=== PATIENT | male | born 1945 | race Two or more races ===

== ENCOUNTER 2025-06-29 07:41 | Outpatient (OUT) | payer MEDICARE, OTHER, SELFPAY ==
--- OUTSIDE RECORDS SUMMARY | 2025-01-09 07:30 | XMS_ITS ---
Author Organization The [facility] in [place] Address [address] [place] [address] Care Team Providers Care Customer Service Receptionist Name Role Phone Flor Doll Primary Care Provider REASON FOR VISIT BP CHECK Vital Signs Blood pressure systolic 134 mm Hg 01/09/20 25 Blood pressure diastolic 78 mm Hg 025 Height 72 in 01/09/2025 Encounters Encounter Location Date Provider Diagnosis [facility] [address] [place] [address] 01/09/2025 Flor Doll Hypertension 401.9 Assessments Encounter Date Diagnosis (ICD Code) Assessment Notes Treatment Notes Treatment Clinical Notes Section Notes 01/09/2025 Hypertension (ICD9-CM - 401.9) Plan Of Treatment No Information Progress Notes * Ovidio RMkaveh ADOB: [birth year] (79 yo M)Acc No.[id number]:01/09/2025 BP Check Patient: Breanna CRABTREE Provider: Ankur Doll ([facility]), ORACLE ANALYST :1945 A ge:79 Y S ex:Male Date:01/09/2025 Address:[address] [place], [place] [id number] Check In:11:25 AM ESTCheck O ut:11:28 AM EST Subjective: * Chief Complaints: * 1 . BP CHECK. * Active Problem List M19.90 Arthritis Modified On:03/11/2024W/U Status:confirmed K57.30 Colon, diverticulosi s Modified On:03/11/2024U Status:confirmed R97.20 Elevated prostate sp ecific antigen [PSA] Modified On:03/11/2024/U Status:confirmed E78.5 Hyperlipemia Modified On:01/27/2023U Status:confirmed * Medical History: Objective: * Vitals: H t: 72 in, BP:134/78mm Hg, Ht-cm: 182.88 cm. Assessment: * Assessment: 1. H ypertension - 401.9 (Primary) Plan: * Treatment: * * Sign off status: Completed Visit Status: Andi CLEARY (Check Out) true * Provider: Ankur Doll ([facility]), ORACLE ANALYST Date: 01/09/2025 Generated for Ilda mullins/Corina/Renatoitting on: 06/29/2025 07:48 AM EDT
--- OUTSIDE RECORDS SUMMARY | 2025-06-25 05:30 | XMS_ITS ---
Author Organization The [facility] in [place] Address [address] [place] [address] Care Team Providers Care Sandstone Inspector Repairer Name Role Phone Flor Doll Primary Care Provider [phone] Mason Solis [phone] Allergies No Known Allergies REASON FOR VISIT Medicare Wellness Medications Medication SIG (Take, Route, Frequency, Duration) Notes Start Date End Date Status Dorzolamide HCl-Timolol Mal 2-0.5 % 1 drop into affected eye Ophthalmic Twice a day Active Latanoprost 0.005 % 1 drop into affected eye in the evening Ophthalmic Once a day Active Social History Tobacco Use: Social History Observation Description Date Details (start date - stop date) Former Smoker NA - 12/12/1969 Tobacco Control (Standard) Question Answer Notes Tobacco use: Former smoker When did you stop smoking? 12/12/1969 How long has it been since you last smoked? Paulaa ter than 10 years AUDIT-C (Standard) Question Answer Notes Did you have a drink contain ing alcohol in the past year? Yes How often did you have six o r more drinks on one occasion in the past year? 4 or more times a week (4 points) How many drinks did you have on a typical day when you were drinking in the past year? 5 or 6 drinks (2 points) How often did you have a dri nk containing alcohol in the past year? Monthly or less (1 point) Points 7 Interpretation Positive Vital Signs Blood pressure systolic 132 mm Hg 06/25/20 25 Blood pressure diastolic 82 mm Hg 025 Height 72 in 06/25/2025 Weight 173.2 lbs 06/25/2025 BMI 23.49 kg/m2 06/25/2025 Encounters Encounter Location Date Provider Diagnosis [facility] ([place], [place]) [address] [facility] [place] [address] 06/25/2025 Mason Marcusdemian Encounter for Medica annual wellness exam Z00.00 Assessments Encounter Date Diagnosis (ICD Code) Assessment Notes Treatment Notes Treatment Clinical Notes Section Notes 06/25/2025 Encounter for Medicare annual wellness exam (ICD-10 - Z00.00) Plan Of Treatment No Information Progress Notes * Breanna RM ADOB: [birth year] (80 yo M)Acc No.[id number]:06/25/2025 UNLOCKED PROGRESS NOTE Progress Note Patient: Breanna CRABTREE Provider: Royer Solis ([facility])MD :1945 A ge:80 Y S ex:Male Date:06/25/2025 Address:[address] [place] [id number] Pcp:Flor Doll Check In:09:09 AM ESTCheck O ut:10:19 AM EST Subjective: * Chief Complaints: * 1 . Medicare Wellness. * HPI: Koby shell Annual Wellness Visit: Type of Visit: [facility] Annual Wellness Visit (SAWV).? Visual Acuity: N /A. Other Providers of Care: C are Team reviewed with patient: Demian cohen, and updates made in [place] of Care Physical Activity: D o you exercise regularly? Y es T ype of exercise: _ __ F requency: _ __ Nutrition/Diet: O n a typical day, how many servings of fruits and vegetables do you consume? 4 I n a typical week, how many servings of fried or high fat (such as cheese, fatty meat) do you consume? 4 I n a typical week, how many servings of high fiber or whole grain foods do you consume? 4 Seat Belt: D o you always use your seat belt in your car??Yes A re you having difficulties driving your car??No C an you get to places out of walking distance without help? Y es Dental: H ow would you describe the condition of your mouth and teeth, including any false teeth or dentures? E xcellent Medication List Follow-Up: D uring the past four weeks, how much bodily pain do you have? N o pain D o you have a current opioid prescription??No Self Assessment of Health: H ow would you rate your overall health the past four weeks? E xcellent H ow confident are you that you can control and manage most of your health problems? V mario alberto confident H ow have things been going for you during the past four weeks? V mario alberto well; could hardly be better D uring the past four weeks, was someone available to help you if you needed and wanted help? Y es, as much as I wanted (Example: if you felt nervous, lonely, or blue; got sick and had to stay in bed; needed someone to talk to; help with daily chores; or needed help just taking care of yourself) D o you have any sexual problems? N o D o you have any troubles eating well? N o D o you have any problems with tiredness or fatigue? N o H ave you noticed any hearing difficulties??No Sun Exposure: D o you protect yourself from over exposure to the sun when outdoors? Y es Mental Wellness: D uring the past four weeks, how much have you been bothered by emotional problems such as feeling anxious, depressed, irritable, sad, or downhearted and blue? N ot at all D uring the past four weeks, has your physical and emotional health limited your social activities with family, friends, neighbors, or groups??Not at all Functional Ability and Safety Screening: D o you need assistance with any of the following? Select all that apply. N one D oes your home have rugs in the hallway, lack grab bars in the bathroom, lack handrails on the stairs or have poor lighting? N o D o you feel unsteady and/or dizzy when standing or walking? N o D o you have smoke detectors in your home and routinely change the batteries? Y es D o you have a fire extinguisher and know how to use it properly? Y es D o you have any problems with your living situation, food, transportation, utilities, or safety? N o Cognitive Screening: H ave you experienced any memory issues or problems with thinking? N o H ave your family members, friends, caretakers, or others raised any concerns? N o D o you get confused or easily distracted more than you used to? N o H as your ability to concentrate seem to have declined recently? N o O verall Cognitive Status I ntact End of Life Planning: D o you have a living will? Y es D o you have a Durable Power of [employer] Cle[employer] Supervisor? Y es W ould you like to discuss this topic today??No SDOH A gree to complete Social Determinants of Health questionnaire Y es W ithin the past 12 months, did you worry that your food would run out before you got money to buy more? N o W ithin the past 12 months, did the food you bought just not last and you didn't have money to buy more? N o W ithin the past 12 months, have you ever stayed: outside, in a car, in a a tent, in an overnight detention, or temporarily in someone else's home??No A re you worried about losing your housing??No W ithin the past 12 months, have you been able to get utilities (heat, electricity) when it was really needed? N o W ithin the past 12 months, has a lack of transportation kept you from medical appointments or from doing things needed for daily living? N o D o you feel physically or emotionally unsafe where you currently live? N o W ould you like help with any of these needs that you have identified? N o DO NOT USE - Vision Screening Y es, no gross abnormalities, under the care of an eye doctor . DO NOT USE - Vision Screening Questionnaire H ave you had an appointment with your Eye Doctor in the past year? Y es DO NOT USE - Hearing Screening Y es, no gross abnormalities. DO NOT USE - ETOH Use: N ever. DO NOT USE - Psychosocial Risks H ave you been experiencing more stress or anxiety than usual? N o A re you experiencing any stress or anxiety about your disease management? N o DO NOT USE - Behavioral Risks - P atient seems well adjusted and no behavioral issues noted DO NOT USE - Personal Care Activities H ow difficult is it for you to bathe or clean yourself? N ot difficult H ow difficult is it for you to dress yourself? N ot difficult DO NOT USE - Household Activities H ow difficult is it for you to do routine housework? N ot difficult H ow much does your family help with daily or routine chores? N ot at all DO NOT USE - Daily Activities H ow difficult is it for you to do your own shopping? N ot difficult H ow difficult is it for you to prepare your own food? N ot difficult DO NOT USE - Financial Activities D escribe your ability to plan your daily/monthly budgets and pay your bills: Madelaine Howell DO NOT USE - Pain Assessment D o you experience pain? N o DO NOT USE - Get Up and Go Evaluation U nder 20 seconds.? DO NOT USE - Discussed Advance Directives P atient refused to discuss at this time. DO NOT USE - Activities of Daily Living/Home Safety H ow difficult is it for you to get around your house? N ot difficult H ow difficult is it for you to use the toilet by yourself? N ot difficult H ow difficult is it for you to bathe or clean yourself? N ot difficult H ow difficult is it for you to dress yourself? N ot difficult H ow difficult is it for you to do routine housework? N ot difficult H ow much does your family help with daily or routine chores? N ot at all H ow difficult is for you to do your own shopping? N ot difficult H ow difficult is it for you to prepare your own food? N ot difficult D escribe your ability to plan your daily/monthly budgets and pay your bills: Madelaine Howell A re you currently licensed to drive a vehicle? Y es D o you feel that you are safe in your current home? Y es Patient presents to office alone today via self to transport. Patient stated that he is under the care of and eye doctor and dentist. Patient pleasant and happy with his overall care. Patient is very active and enjoys gardening in his garden. Patient denies wanting to discuss end of life details. Patient is ok with yearly labs and would like them sent to [facility]. D epression Screening: PHQ-2 (2015 Edition) L ittle interest or pleasure in doing things??Not at all F eeling down, depressed, or hopeless? N ot at all T otal Score 0 * Medical History: H yperlipemia, Elevated prostate specific antigen [PSA], Arthritis, Colon, diverticulosis, Abnormal findings in stool, Skin cancer of face. * Surgical History: A ppendectomy , Glaucoma and Cataract Extractions- both eyes . * Hospitalization/Major Diagno stic Procedure: D enies Past Hospitalization. * Family History: F ather: , chronic obstructive pulmonary disease. M other: . B glenner(s): alive, prostate cancer, diagnosed with Prostate cancer. S iscarolyn(s): alive, leukemia. S on(s): alive, type II diabetes, diagnosed with Diabetes mellitus without mention of complication, type II or unspecified type, not stated as uncontrolled. D quincyer(s): alive. 3 brother(s) , 3 sister(s) . 1 son(s) , 1 daughter(s) . . * Social History: T obacco Use: T obacco Control (Standard) T obacco use: F ormer smoker W hen did you stop smoking? 0 12/12/1969 H ow long has it been since you last smoked??Greater than 10 years D rug/Alcohol: A JESSICA-C (Standard) D id you have a drink containing alcohol in the past year? Y es H ow often did you have six or more drinks on one occasion in the past year? 4 or more times a week (4 points) H ow many drinks did you have on a typical day when you were drinking in the past year? 5 or 6 drinks (2 points) H ow often did you have a drink containing alcohol in the past year? M onthly or less (1 point) P oints 7 I nterpretation P ositive * Medications: T aking Dorzolamide HCl-Timolol Mal 2-0.5 % Solution 1 drop into affected eye Ophthalmic Twice a day , Taking Latanoprost 0.005 % Solution 1 drop into affected eye in the evening Ophthalmic Once a day , Discontinued Tamiflu(Oseltamivir Phosphate) 75 MG Capsule 1 capsule Orally Twice a day , Medication List reviewed and reconciled with the patient * Allergies: N .K.D.A. Objective: * Vitals: W t:173.2lbs, Ht: 72 in, BP:132/82mm Hg, BMI:23.49Index, Ht-cm: 182.88 cm, Wt-k.56 kg. Assessment: * Assessment: 1. E [facility] for Medicare annual wellness exam - Z00.00 (Primary) Plan: * Treatment: * Procedure Codes: G 0439 ANNUAL WELLNESS, SUBSEQ * Preventive Medicine: Screenings/Counseling: F ALL RISK SCREENING Fall Risk Assessment: N o falls in the past year Are you afraid of falling? N o * * Electronic signature of Mason Solis MD, [phone] on 06/29/2025 at 07:48 AM EDT Sign off status: Pending Visit Status: C HK (Check Out) * Provider: Royer Solis ([facility])MD Date: 0 06/25/2025 Generated for Graemei susanna/Corina/eTransmitting on: 0 06/29/2025 07:48 AM EDT History and Physical Notes * HPI (History of Present Illness) Category Sub-Category Detail Notes Category Not es Medicare Annual Wellness Visit Type of Visit: Subsequent Annual Wellness V isit (SAWV) Patient presents to office alone today via self to transport. Patient stated that he is under the care of and eye doctor and dentist. Patient pleasant and happy with his overall care. Patient is very active and enjoys gardening in his garden. Patient denies wanting to discuss end of life details. Patient is ok with yearly labs and would like them sent to [facility]. DO NOT USE - Pain Assessment Do you experience p ain?: No DO NOT USE - Vision Screening Yes, no gr oss abnormalities, under the care of an eye doctor DO NOT USE - Hearing Screening Yes, no g ross abnormalities DO NOT USE - Psychosocial Risks Have you been experiencing more stress or anxiety than usual?: No Are you experiencing any stress or anxie ty about your disease management?: No DO NOT USE - Behavioral Risks -: Patient seems well adjusted and no behavioral issues noted Cognitive Screening: Have you experience d any memory issues or problems with thinking?: No Have your family members, fr iends, caretakers, or others raised any concerns?: No Do you get confused or easily distracted more than you used to?: No Has your ability to concentrate seem to have declined recently?: No Overall Cognitive Status: Intact Self Assessment of Health: How would you rate your overall health the past four weeks?: Excellent How confident are you that y ou can control and manage most of your health problems?: Very confident How have things been going f or you during the past four weeks?: Very well; could hardly be better During the past four weeks, was someone available to help you if you needed and wanted help?: Yes, as much as I wanted (Example: if you felt nervous, lonely, o r blue; got sick and had to stay in bed; needed someone to talk to; help with daily chores; or needed help just taking care of yourself) Do you have any sexual problems?: No Do you have any troubles eating well?: N o Do you have any problems wit h tiredness or fatigue?: No Have you noticed any hearing difficulties?: No DO NOT USE - Activities of D aily Living/Home Safety How difficult is it for you to get around your house?: Not difficult How difficult is it for you to use the t oilet by yourself?: Not difficult How difficult is it for you to bathe or clean yourself?: Not difficult How difficult is it for you to dress you rself?: Not difficult How difficult is it for you to do routin e housework?: Not difficult How much does your family help with jessica y or routine chores?: Not at all How difficult is for you to do your own shopping?: Not difficult How difficult is it for you to prepare y our own food?: Not difficult Describe your ability to rachna n your daily/monthly budgets and pay your bills:: Very Good Are you currently licensed to drive a [employer]?: Yes Do you feel that you are safe in your cu rrent home?: Yes DO NOT USE - Get Up and Go Evaluation Un elana 20 seconds DO NOT USE - Discussed Advance Directive s Patient refused to discuss at this time Physical Activity: Do you exercise regularly?: Y es Type of exercise:: ___ Frequency:: ___ DO NOT USE - Personal Care Activities Ho w difficult is it for you to bathe or clean yourself?: Not difficult How difficult is it for you to dress you rself?: Not difficult DO NOT USE - Household Activities How di fficult is it for you to do routine housework?: Not difficult How much does your family help with jessica y or routine chores?: Not at all DO NOT USE - Daily Activities How diffic ult is it for you to do your own shopping?: Not difficult How difficult is it for you to prepare y our own food?: Not difficult DO NOT USE - Financial Activities Descri be your ability to plan your daily/monthly budgets and pay your bills:: Very Good Functional Ability and Safety Screening: Do you need assistance with any of the following? Select all that apply.: None Does your home have rugs in the hallway, lack grab bars in the bathroom, lack handrails on the stairs or have poor lighting?: No Do you feel unsteady and/or dizzy when s tanding or walking?: No Do you have smoke detectors in your home and routinely change the batteries?: Yes Do you have a fire extinguisher and know how to use it properly?: Yes Do you have any problems wit h your living situation, food, transportation, utilities, or safety?: No DO NOT USE - Vision Screening Questionna vijaya Have you had an appointment with your Eye Doctor in the past year? : Yes Visual Acuity: N/A DO NOT USE - ETOH Use: Never Nutrition/Diet: On a typical day, ho w many servings of fruits and vegetables do you consume?: 4 In a typical week, how many servings of fried or high fat (such as cheese, fatty meat) do you consume?: 4 In a typical week, how many servings of high fiber or whole grain foods do you consume?: 4 Seat Belt: Do you always use your seat belt in your car?: Yes Are you having difficulties driving your car?: No Can you get to places out of walking dis tance without help?: Yes Dental: How would you descri be the condition of your mouth and teeth, including any false teeth or dentures?: Excellent Medication List Follow-Up: During the four weeks, how much bodily pain do you have?: No pain Do you have a current opioid prescriptio n?: No Mental Wellness: During the past four weeks, how much have you been bothered by emotional problems such as feeling anxious, depressed, irritable, sad, or downhearted and blue?: Not at all During the past four weeks, has your physical and emotional health limited your social activities with family, friends, neighbors, or groups?: Not at all Sun Exposure: Do you protect yours elf from over exposure to the sun when outdoors?: Yes End of Life Planning: Do you have a living will? : Yes Do you have a Durable Power of [employer] Cle[employer] Supervisor? : Yes Would you like to discuss this topic tod ay?: No Other Providers of Care: Care Team camryn lugo with patient:: Yes, and updates made in [place] [facility] SDMN Agree to complete So cia Determinants of Health questionnaire: Yes Within the past 12 months, did you worry that your food would run out before you got money to buy more?: No Within the past 12 months, did the food you bought just not last and you didn't have money to buy more?: No Within the past 12 months, have you ever stayed: outside, in a car, in a a tent, in an overnight detention, or temporarily in someone else's home?: No Are you worried about losing your housing?: No Within the past 12 months, have you been able to get utilities (heat, electricity) when it was really needed?: No Within the past 12 months, has a lack of transportation kept you from medical appointments or from doing things needed for daily living?: No Do you feel physically or emotionally unsafe where you currently live?: No Would you like help with any of these needs that you have identified?: No Depression Screening PHQ-2 (2015 Edition) Little interest or pleasure in doing things?: Not at all Feeling down, depressed, or hopeless?: N ot at all Total Score: 0
--- OUTSIDE RECORDS SUMMARY | 2025-06-29 07:48 | XMS_ITS | Clinical Summary ---
Author Organization [facility] Healthcare Address [address] [place] [address] Care Team Providers Care Tire Inspector Name Role Phone Flor Doll MD Unavailable [phone] Allergies No known active allergies Medications Prednisolon-Mox iflox-Bromfenac 1-0.5-0.075 % solutionIndicat ions:Cortical age-related cataract of both eyes Administer 1 drop into affected eye(s) in the morning and 1 drop at noon and 1 drop in the evening and 1 drop before bedtime. 10 mL 1 4 Active latanoprost (Xalatan) 0.005 % ophthalmic solutionIndicat ions:Primary open angle glaucoma (POAG) of both eyes, moderate stage instill 1 (ONE) DROP IN BOTH EYES AT BEDTIME 7.5 mL 3 4 Active dorzolamide-leona olol (Cosopt) 2-0.5 % ophthalmic solutionIndicat ions:Primary open angle glaucoma (POAG) of both eyes, moderate stage instill 1 DROP IN BOTH EYES TWICE DAILY 10 mL 3 5 Active Active Problems Problem Noted Date Diagnosed Date Primary open angle glaucoma (POAG) of both eyes, moderate stage 05/07/2023 Age-related nuclear cataract of both eyes 2022 Dry eyes 05/07/2023 Encounters Date Type Department Care Team Description 03/31/2025 8:30 AM EDT Office Visit [facility] [address] [place] [phone] Trish Rivera MD Primary open angle glaucoma (POAG) of both eyes, moderate stage (Primary Dx) 03/31/2025 Bamboo flowsheet [facility] [address] [place] [phone] Trish Rivera MD 03/31/2025 Travel from Last 3 Months Social History Tobacco Use Types Packs/Day Years Used Date Smoking Tobacco: Former Cigarettes Tobacco Cessation:Counseling Given: Not Answered Sex and Gender Information Value Date Recorded Sex Assigned at Not on file Legal Sex Male 8:32 PM EDT Gender Identity Not on file Sexual Orientation Not on file Plan of Treatment Upcoming Encounters Date Type Department Care Team (Late st Contact Info) Description 08/03/2025 9:15 AM EDT Office Visit [facility] [address] [place] [address] Trish Rivera MD [address] [place], [place] [id number] Health Maintenance Due Date Last Done Comments Pneumococcal Vaccine: 65+ Ye ars (1 of 1 - PCV) 1996 Influenza Vaccine (#1) 2025 4, 08/20/2023, 08/21/2022, Additional history exists Procedures Procedure Name Priority Date/Time Associated Diagnosis Comments TAPIA VISUAL FIELD - OU - BOTH EYES Routine 03/31/2025 9:07 AM EDT Primary open angle glaucoma (POAG) of both eyes, moderate stage from Last 3 Months Results * Tapia Visual Field - OU - Both Eyes (03/31/2025 9:07 AM EDT) Anatomical Region Laterality Modality Head Visual Field Narrative 03/31/2025 9:07 AM EDT Right Eye Reliability was good. Progression has no prior data. Foveal threshold was reduced. Findings include superior nasal step defect, inferior nasal step defect, superior altitudinal defect, inferior altitudinal defect, superior paracentral defect, inferior paracentral defect, paracentral scotoma. Left Eye Findings include inferior arcuate defect, inferior nasal step defect, inferior altitudinal defect. Trish Rivera MD OPH VISUAL FIELD Final Result from Last 3 Months Insurance MEDICARE [facility] [place] [phone] Care Teams Tire Inspector Relationship Specialty Start Date End Date Flor Doll MD [address] [place] [id number] Referring Physician Family Medicine 12/27/23
--- OUTSIDE RECORDS SUMMARY | 2025-06-29 07:49 | XMS_ITS | Patient Health Record ---
Author Organization [facility] [place] Address [address] [place] [address] Care Team Providers Care Reed Polisher Name Role Phone Flor Doll Primary Care Provider Mason Solis Marco [phone] Allergies No Known Allergies Results Component Value Reference Range Notes COVID-19, Flu A+B IH (Not ye t reviewed by provider) Interpretation: Performing Lab: Notes/Report: COVID neg FLU A positive FLU B neg Control present Reason For Referral No Information Medications Medication SIG (Take, Route, Frequency, Duration) Notes Start Date End Date Status Dorzolamide HCl-Timolol Mal 2-0.5 % 1 drop into affected eye Ophthalmic Twice a day Active Latanoprost 0.005 % 1 drop into affected eye in the evening Ophthalmic Once a day Active Immunizations Vaccine Route Administration Date Status Comme nts Flu, Fluad (50270) 65 yrs + High Dose Seasonal () Unknown 08/22/2016 Administered Flu, Fluad (50789) 65 yrs + High Dose Seasonal () Unknown 08/10/2017 Administered Flu, Fluad (60876) 65 yrs + High Dose Seasonal () Unknown 09/09/2018 Administered Flu, Fluad (32798) 65 yrs + High Dose Seasonal () Unknown 09/08/2019 Administered Flu, Fluad (80430) 65 yrs + High Dose Seasonal () Unknown 08/18/2024 Administered Flu, Fluad (52982) 65 yrs+, single-dose syringe () Unknown 08/20/2023 Administered Flu, Fluzone (97576) 6 mos+, single-dose syringe/vial (7812-0346) Unknown 09/08/2015 Administered Flu, Fluzone High-Dose (2022 -2023) (42906) 65 yrs+ Unknown 08/02/2020 Administered Flu, Fluzone High-Dose (2022 -2023) (87563) 65 yrs+ Unknown 08/10/2021 Administered Flu, Fluzone High-Dose (2022 -2023) (30022) 65 yrs+ Unknown 08/21/2022 Administered SARS-COV-2 (COVID 19 Moderna - Booster 0.25mL) Unknown 12/24/2020 Administered SARS-COV-2 (COVID 19 Moderna - Booster 0.25mL) Unknown 01/20/2021 Administered Social History Tobacco Use: Social History Observation Description Date Details (start date - stop date) Former Smoker NA - 12/12/1969 Tobacco Control (Standard) Question Answer Notes Tobacco use: Former smoker When did you stop smoking? 12/12/1969 How long has it been since you last smoked? Grea ter than 10 years AUDIT-C (Standard) Question [...] less (1 point) Points 7 Interpretation Positive Problems Problem Type SNOMED Code ICD Code Onset Dates Problem Status W/U Status Risk Notes Problem Hyperlipidaemia (80480129) Hyperlipemia (E78.5) Active confirmed Problem Hypertension (22433175) Hypertension (I10) Active confirmed Problem Arthritis (1091568) Arthritis (M19.90) Active confirmed Problem Diverticular disease of colon (870074677) Colon, diverticulosis (K57.30) Active confirmed Problem Elevated PSA (213577470) Elevated prostate specific antigen [PSA] (R97.20) Active confirmed Vital Signs Temperature 101.3 degrees Fahrenheit 01/02/2025 Blood pressure diastolic 82 mm Hg 06/25/2025 Height 72 in 06/25/2025 Blood pressure systolic 132 mm Hg 06/25/2025 Weight 173.2 lbs 06/25/2025 BMI 23.49 kg/m2 06/25/2025 Encounters Encounter Location Date Provider Diagnosis [facility] [address] [place] [address] 01/08/2025 Flor Doll [facility] [address] [place] [address] 01/09/2025 Flor Doll [facility] [address] [place] [address] 06/25/2025 Flor Doll Hypertension [address] [place] [address] 01/02/2025 Flor Doll Body aches R52 ; Influenza A J10.1 and Fever R50.9 [facility] [address] [place] [address] 01/09/2025 Flor Doll Hypertension 401.9 [facility] [address] [place] [address] 06/25/2025 Mason Solis Encounter for [facility] annual wellness exam Z00.00 Assessments Encounter Date Diagnosis (ICD Code) Assessment Notes Treatment Notes Treatment Clinical Notes Section Notes 01/02/2025 Body aches (ICD-10 - R52) 01/02/2025 Influenza A (ICD-10 - J10.1) fu if not improving if eye doesnt continue improve, notify office 01/09/2025 Hypertension (ICD9-CM - 401.9) 06/25/2025 Encounter for Medicare annual wellness exam (ICD-10 - Z00.00) 06/25/2025 Hypertension (ICD-10 - I10) 01/02/2025 Fever (ICD-10 - R50.9) Plan Of Treatment Pending Test Test Name Order Date HEMOGLOBIN A1C (GLYCO) 06/25/2025 INSULIN, TOTAL 06/25/2025 LIPID PANEL (CHOL/TRIG/HDL/LDL) 06/25/20 25 URIC ACID 06/25/2025 COVID-19, Flu A+B IH 01/02/2025 THYROID PANEL (T4/TSH/FREE T3) PSA, SCREENING 06/25/2025 CMP (COMP MET SERNA) w/eGFR CKD-EPI 2024 CBC WITH DIFF 06/25/2025 Insurance Providers Payer Name Payer Address Payer Phone Subscriber Number Group Number Insured Name Patient Relationship to Insured Coverage Start Date Coverage End Date [place]IC[place] [address] [place] [address] [id number] Breanna Wong Self - patient is the insured [employer] [id number] [place] [address] [id number] Plan F Breanna Wong Self - patient is the insured Medical (General) History Medical History History ICD Code Hyperlipemia E78.5 Elevated prostate specific antigen [PSA] R97.20 Arthritis M19.90 Colon, diverticulosis K57.30 Abnormal findings in stool R19.5 Skin cancer of face C44.310 Surgical History Surgery Date(Month/Year) Appendectomy Glaucoma and Cataract Extractions- both eyes
[2025-06-29 08:42] LABS: Hematocrit 44.3 % (42.0-54.0); Hemoglobin 15.0 g/dL (14.0-18.0); Immature Granulocytes Abs Auto 0.01 10^3/uL (0.00-0.03); Immature Granulocytes Pct Auto 0.2 % (0.0-0.5); Lymphocytes Absolute Auto 1.7 10^3/uL (1.2-3.8); Mean Corpuscular HGB Conc 33.9 g/dL (29.9-35.2); Mean Corpuscular Hemoglobin 31.6 pg (25.9-34.0); Mean Corpuscular Volume 93.5 fL (80.0-94.0); Platelet Count 199 10^3/uL (150-450); Red Blood Count 4.74 10^6/uL (4.70-6.10); White Blood Count 4.7 10^3/uL (4.0-11.0)
[2025-06-29 09:48] LABS: Alanine Aminotransferase 20 U/L (16-63); Albumin Globulin Ratio 0.8; Albumin Level 3.4 g/dL (3.4-5.0); Alkaline Phosphatase 63 U/L (46-116); Anion Gap 10.0; Aspartate Amino Transferase 17 U/L (15-37); Blood Urea Nitrogen 15.0 mg/dL (7.0-18.0); Calcium 9.0 mg/dL (8.5-10.1); Carbon Dioxide 28.4 mmol/L (21.0-32.0); Chloride 103 mmol/L (98-107); Cholesterol 202 mg/dL (<=200); Estimated GFR (African America >60 (>=60 mL/min/1.73m^2); Estimated GFR (Non-African Ame >60 (>=60 mL/min/1.73m^2); Free T3 2.36 pg/mL (2.18-3.98); Globulin 4.3 g/dL; Glucose 96 mg/dL (74-106); HDL Cholesterol 62 mg/dL (40-60); Potassium 4.4 mmol/L (3.5-5.1); Sodium 137 mmol/L (136-145); Thyroid Stimulating Hormone 2.240 uIU/mL (0.358-3.740); Total Protein 7.7 g/dL (6.4-8.2); Triglycerides 64 mg/dL (<=150); Uric Acid 4.7 mg/dL (3.5-7.2); VLDL CHOLESTEROL 12.8 mg/dL
== END 2025-06-29 07:42 | disposition home or self-care (01) ==
LOC: LAB 07:46
PROVIDERS: PCP Nurse Practitioner Family; Visit Provider Nurse Practitioner Family
DX: E78.5 Hyperlipidemia, unspecified (principal); I10 Essential (primary) hypertension; R73.09 Other abnormal glucose; M10.9 Gout, unspecified; E03.9 Hypothyroidism, unspecified; Z12.5 Encounter for screening for malignant neoplasm of prostate; D50.9 Iron deficiency anemia, unspecified
CPT/HCPCS: 36415; 80053; 80061; 83036; 83525; 84443; 84480; 84481; 84550; 85025; G0103

== ENCOUNTER 2025-07-06 10:43 | Outpatient (OUT) | payer MEDICARE, OTHER, SELFPAY ==
[2025-07-07 05:07] LABS: PSA, Free 0.81 ng/mL
== END 2025-07-06 10:44 | disposition home or self-care (01) ==
LOC: LAB 10:45
PROVIDERS: PCP Nurse Practitioner Family; Visit Provider Nurse Practitioner Family
DX: R97.20 Elevated prostate specific antigen [PSA] (principal)
CPT/HCPCS: 36415; 84153; 84154